=== PATIENT | male | born 1980 | race Caucasian/White ===

== ENCOUNTER 2018-09-08 08:26 | Emergency (ER) | payer OTHER ==
[~2018-09-08] VITALS: Ht 175.3 cm; Wt 118.2 kg
[2018-09-08 08:34] VITALS: BP 157/100; Ht 175.3 cm; Wt 118.2 kg
== END 2018-09-08 09:05 | disposition home or self-care (01) ==
LOC: D.ER 08:26
DX: J02.9 Acute pharyngitis, unspecified (principal); S19.83XA Other specified injuries of vocal cord, initial encounter; X58.XXXA Exposure to other specified factors, initial encounter; Y93.89 Activity, other specified; Y92.019 Unspecified place in single-family (private) house as the place of occurrence of the external cause; F17.200 Nicotine dependence, unspecified, uncomplicated

== ENCOUNTER 2019-05-18 10:16 | Emergency (ER) | payer SELFPAY ==
[~2019-05-18] VITALS: Ht 175.3 cm; Wt 120.5 kg
[2019-05-18 10:20] VITALS: Ht 175.3 cm; Wt 120.5 kg
[2019-05-18] MEDS ORDERED: CYCLOBENZAPRINE10 MG PO (12:00)
[2019-05-18] MEDS ORDERED: IBUPROFEN800 MG PO (12:00)
[2019-05-18] MEDS ORDERED: ACETAMINOPHEN500 M1 PO (12:00)
[2019-05-18 13:40] VITALS: BP 155/94
== END 2019-05-18 12:38 | disposition home or self-care (01) ==
LOC: D.ER 10:16
DX: S70.12XA Contusion of left thigh, initial encounter (principal); W20.8XXA Other cause of strike by thrown, projected or falling object, initial encounter; Y93.89 Activity, other specified; Y92.89 Other specified places as the place of occurrence of the external cause; S70.11XA Contusion of right thigh, initial encounter

== ENCOUNTER 2019-05-28 17:14 | Emergency (ER) | payer SELFPAY ==
[~2019-05-28] VITALS: Ht 175.3 cm; Wt 118.2 kg
[~2019-05-28 17:14] MED LIST: ACETAMINOPHEN500 M1 PO; CYCLOBENZAPRINE10 MG PO; IBUPROFEN800 MG PO
[2019-05-28 17:19] VITALS: Ht 175.3 cm; Wt 118.2 kg
[2019-05-28] MEDS ORDERED: VOLTAREN75 MG PO (17:41)
[2019-05-28] MEDS ORDERED: VIBRAMYCIN 100100 MG PO (17:41)
[2019-05-28 18:41] VITALS: BP 148/89
== END 2019-05-28 18:42 | disposition home or self-care (01) ==
LOC: D.ER 17:14
DX: L03.116 Cellulitis of left lower limb (principal)

== ENCOUNTER 2019-11-25 15:46 | Emergency (ER) | payer OTHER ==
[~2019-11-25] VITALS: Ht 175.3 cm; Wt 125.0 kg
[~2019-11-25 15:46] MED LIST changes: +VIBRAMYCIN 100100 MG PO; +VOLTAREN75 MG PO
[2019-11-25 16:00] VITALS: Ht 175.3 cm; Wt 125.0 kg
[2019-11-25 17:21] VITALS: BP 146/76
== END 2019-11-25 17:22 | disposition home or self-care (01) ==
LOC: D.ER 15:46
DX: Z00.00 Encounter for general adult medical examination without abnormal findings (principal); I10 Essential (primary) hypertension; I38 Endocarditis, valve unspecified; Z72.0 Tobacco use

== ENCOUNTER 2020-06-24 15:39 | Emergency (ER) | payer OTHER ==
[~2020-06-24] VITALS: Ht 175.3 cm; Wt 134.8 kg
[2020-06-24 16:04] VITALS: Ht 175.3 cm; Wt 134.8 kg
[2020-06-24] MEDS ORDERED: LISINOPRIL20 MG PO (16:06)
[2020-06-24] MEDS ORDERED: LISINOPRIL40 MG PO (16:09)
[2020-06-24 16:40] VITALS: BP 144/93
== END 2020-06-24 16:40 | disposition home or self-care (01) ==
LOC: D.ER 15:39
DX: Z76.0 Encounter for issue of repeat prescription (principal); I10 Essential (primary) hypertension